=== PATIENT | male | born 1985 | race Caucasian/White ===

== ENCOUNTER 2020-05-04 13:37 | Emergency (ER) | payer OTHER ==
[2020-05-04] MEDS ORDERED: IBUPROFEN600 MG PO (16:25)
== END 2020-05-04 17:00 | disposition home or self-care (01) ==
LOC: ER1 13:37
DX: S00.31XA Abrasion of nose, initial encounter (principal); W22.8XXA Striking against or struck by other objects, initial encounter; Y92.009 Unspecified place in unspecified non-institutional (private) residence as the place of occurrence of the external cause; Z23 Encounter for immunization
CPT/HCPCS: 70160; 90471; 90715; 99283